=== PATIENT | female | born 1965 | race Caucasian/White ===

== ENCOUNTER 2016-11-10 15:45 | Emergency (ER) | payer OTHER ==
--- NOTE | ~2016-11-10 | EKG ---
PATIENT: CHARLENE CABALLERO UNIT #: [id number] Ventricular Rate: 80 BPM Atrial Rate: 80 BPM P-R Interval: 154 ms QRS Duration: 90 ms Q-T Interval: 426 ms QTC Calculation(Bezet): 491 ms P [place]: 36 degrees Calculated R [place]: 45 degrees Calculated T [place]: 43 degrees Diagnosis Line: Normal sinus rhythm Diagnosis Line: Prolonged QT Diagnosis Line: Abnormal ECG Diagnosis Line: When compared with ECG of 30-NOV-2015 22:45, Diagnosis Line: No significant change was found Diagnosis Line: Confirmed by SREE COLLAZO MD ([id number]) on 11/11/2016 Diagnosis Line: 10:38:17 AM INTERPRETING MD: VALE MERCADO
--- NOTE | ~2016-11-10 | CR72 ---
[facility] A Service of [facility] RADIOLOGY TEXT RESULTS PATIENT: CHARLENE CABALLERO LOCATION: [facility] : 67 UNIT #: [id number] AGE: [address]: Andres Perdomo MD SEX: F ORDER DR: [id number] [facility] [address] [place], [place] [address] [id number] MR#: [id number] #: [id number] NAME: CHARLENE CABALLERO : 1965 SEX: F STUDY DATE/TIME: 11/10/2016 17:01 UNIT: [facility] ROOM: STUDY DESCRIPTION: CR Chest Single View Portable Attending Physician: Kirby Perdomo M.D. Ordering Physician: [facility] Primary Care Physician: No Primary Care Physician MEDICAL IMAGING REPORT This report is preliminary unless electronic signature is present EXAM Single view chest 11/10/2016 INDICATIONS Dyspnea, chest pain, cough and congestion for 1 year. Increasing severity over 2 weeks. FINDINGS Single portable AP view of the chest compared to 11/30/2015. Heart and mediastinal contours are normal. The lungs are clear. No pleural effusion. There are some old left-sided rib fractures involving the left lateral third and fourth ribs. These are not clearly identified on the prior radiograph. There may be left fifth and sixth rib fractures, as well. IMPRESSION 1. No acute findings. 2. Left lateral third and fourth rib fractures are chronic, however appear new from the November 2015 comparison. Dictated by... Star Trujillo M.D. THIS IS AN ELECTRONICALLY VERIFIED REPORT Star Trujillo M.D. at 11/10/2016 9:45 PM ISABEL/kim TD: 11/10/2016 18:22 JOB #: [id number] MEDICAL IMAGING REPORT Page 1 of 1 COPY
[~2016-11-10 15:45] MED LIST: LIBRIUM PO; PROPRANOLOL HCL80 M1 PO; TENORMIN25 M1 PO
[2016-11-10 16:58] LABS: POC - CKMB 1.8 ng/mL (0.0-7.9); POC - TROPONIN <0.05 ng/mL (<=0.05)
[2016-11-10 17:04] LABS: BASOPHIL% 0.9 % (0-2.5); HEMATOCRIT 40.3 % (35.0-45.0); HEMOGLOBIN 12.8 gm/dL (12.0-16.0); LYMPHOCYTE# 0.9 X10e3 (1.0-3.5); LYMPHOCYTE% 26.2 % (17.0-45.0); MEAN CELL VOLUME 84.9 FL (83-96); MEAN CORPUSCULAR HGB CONC 31.8 g/dL (30-36); MEAN PLATELET VOLUME 10.2 FL (6.5-11.5); MONOCYTE# 0.2 X10e3 (0-1.0); MONOCYTE% 4.5 % (3.0-12.0); NEUTROPHIL# 2.5 X10e3 (1.5-7.1); NEUTROPHIL% 68.4 % (40-75); PLATELET COUNT 106 X10e3 (140-420); RED BLOOD COUNT 4.75 X10e (3.90-5.30); RED CELL DISTRIBUTION WIDTH 19.1 % (11.0-15.5); WHITE BLOOD COUNT 3.6 X10e3 (4.0-10.5)
[2016-11-10 17:08] LABS: DIFF IND NO
[2016-11-10 17:26] LABS: ALBUMIN SERUM 3.5 g/dL (3.5-5.0); BILIRUBIN, DIRECT 0.3 mg/dL (0.0-0.2); BILIRUBIN,INDIRECT 0.8 mg/dL (0.0-0.9); BILIRUBIN,TOTAL 1.1 mg/dL (0.2-2.0); CALCIUM SERUM 8.6 mg/dL (8.4-10.2); GLOM FILT RATE Estimated 65.7 mL/min (>60); PROTEIN TOTAL SERUM 6.4 g/dL (6.0-8.3)
[2016-11-10] MEDS ORDERED: GABAPENTIN400 MG PO (17:47)
[2016-11-10] MEDS ORDERED: VIIBRYD40 MG PO (17:47)
[2016-11-10] MEDS ORDERED: FLONASE 0.05% N16 G1 (17:48)
[2016-11-10] MEDS ORDERED: LAMICTAL100 MG PO (17:48)
== END 2016-11-10 21:47 | disposition home or self-care (01) ==
LOC: CED 15:45
PROVIDERS: Emergency Medicine
DX: F41.9 Anxiety disorder, unspecified (principal); F44.5 Conversion disorder with seizures or convulsions; F32.9 Major depressive disorder, single episode, unspecified; F10.20 Alcohol dependence, uncomplicated; F17.210 Nicotine dependence, cigarettes, uncomplicated; Z90.710 Acquired absence of both cervix and uterus; Z98.890 Other specified postprocedural states
CPT/HCPCS: 36415; 51701; 71010; 80048; 80076; 82553; 83880; 84484; 85025; 93005; 96374; 96375; 99284; J1885; J2060